=== PATIENT | male | born 1960 | race Two or more races ===

== ENCOUNTER 2021-01-18 06:10 | Inpatient (IN) | payer MEDICAID, OTHER ==
[~2021-01-18] VITALS: Ht 160 cm; Wt 77.9 kg
[2021-01-18 07:38] LABS: Basophils # (auto) 0 10 ^3/uL (0-0.2); Eosinophils # (auto) 0.2 10 ^3/uL (0-0.8); Lymphocytes # (auto) 1.4 10 ^3/uL (0.4-5.4); Monocytes # (auto) 0.8 10 ^3/uL (0-1.3)
[2021-01-18 07:57] LABS: Basophils % (auto) 0.4 % (0.0-2.0); Eosinophils % (auto) 2.7 % (0.0-7.0); Hematocrit 40.8 % (41.0-53.0); Hemoglobin 14.7 g/dL (13.5-17.5); Lymphocytes % (auto) 20.1 % (10.0-50.0); Mean Corpuscular Hemoglobin 39.4 pg (28.0-32.0); Mean Corpuscular Volume 109.5 fL (80.0-100.0); Monocytes % (auto) 11.5 % (0.0-12.0); Neutrophils # (auto) 4.5 10 ^3/uL (1.6-8.6); Neutrophils % (auto) 65.3 % (37.0-80.0); Nucleated Red Blood Cells % 0.2 %; Red Blood Cells 3.73 10^6/uL (4.5-5.90); Red Cell Distribution Width 15.6 % (11.8-14.3); White Blood Cell 6.8 10^3/uL (4.4-10.8)
[2021-01-18 08:04] LABS: Albumin 1.9 g/dL (3.4-5.0); Anion Gap 3 (5-15); BUN/Creatinine Ratio 14.5; Blood Urea Nitrogen 11 mg/dL (7-18); Calcium 7.4 mg/dL (8.5-10.1); Carbon Dioxide 22 mmol/L (21-32); Chloride 107 mmol/L (98-107); GFR African American 135 mL/min; GFR Non-African American 112 mL/min; Glucose 99 mg/dL (74-106); Lipase 275 U/L (73-393); Potassium 4.6 mmol/L (3.5-5.1); Sodium 132 mmol/L (136-145)
[2021-01-18 08:10] LABS: Alanine Aminotransferase 69 U/L (16-61); Alkaline Phosphatase 346 U/L (45-117); Aspartate Aminotransferase 137 U/L (15-37); Bilirubin, Total 9.5 mg/dL (0.2-1.0)
[2021-01-18 09:25] LABS: INR 1.49 (0.9-1.15); Partial Thromboplastin Time 38.4 sec (23.0-31.2)
[2021-01-18] MEDS ORDERED: cefTRIAXone 1GM/50ML D5W 50 ML IV ONE (10:00)
[2021-01-18] MEDS ORDERED: metroNIDAZOLE 500MG/100ML 100 ML IV ONE ×2 (10:00)
[2021-01-18] MEDS ORDERED: MULTIPLE VITAMIN TAB PO ONE (11:45)
[2021-01-18] MEDS ORDERED: NITROGLYCERIN 0.4 MG SL TAB SL PRN (11:45)
[2021-01-18] MEDS ORDERED: MORPHINE SULF INJ 2 MG/ML SYRINGE 1ML IV PRN ×2 (11:45)
[2021-01-18] MEDS ORDERED: ONDANSETRON HCL 4 MG/2 ML VIAL IV PRN (11:45)
[2021-01-18] MEDS ORDERED: HYDROcodone-ACET 5/325MG TAB PO PRN (11:45)
[2021-01-18] MEDS ORDERED: THIAMINE HCL 100 MG TAB PO ONE (11:45)
[2021-01-18] MEDS ORDERED: ACETAMINOPHEN 500 MG TAB PO PRN (11:45)
[2021-01-18] MEDS: chlordiazePOXIDE HCL 25 MG CAP PO SCH ×3 (12:11→23:28)
[2021-01-18 12:41] LABS: Urine Bacteria FEW /hpf (None Seen); Urine Blood Negative /uL (Negative); Urine Mucus FEW (None Seen); Urine Specific Gravity 1.011 (1.001-1.035); Urine WBC 2 /hpf (0 - 3)
[2021-01-18 13:20] LABS: Hepatitis A Ab IgM Negative; Hepatitis B Core IgM Negative; Hepatitis B Surface Antigen Negative (Negative)
[2021-01-18 17:40] VITALS: BP 143/87
[2021-01-18] MEDS: PROPRANOLOL HCL 20 MG TAB PO SCH (22:16)
[2021-01-19 05:00] VITALS: BP 143/72
[2021-01-19] MEDS: chlordiazePOXIDE HCL 25 MG CAP PO SCH ×2 (06:30→13:43)
[2021-01-19 06:46] LABS: Potassium 4.5 mmol/L (3.5-5.1)
[2021-01-19 07:00] LABS: Albumin 1.8 g/dL (3.4-5.0); BUN/Creatinine Ratio 17.9; Bilirubin, Total 9.9 mg/dL (0.2-1.0); Calcium 7.2 mg/dL (8.5-10.1); Total Protein 7.1 g/dL (6.4-8.2)
[2021-01-19 07:30] LABS: Basophils # (auto) 0 10 ^3/uL (0-0.2); Basophils % (auto) 0.8 % (0.0-2.0); Eosinophils # (auto) 0.2 10 ^3/uL (0-0.8); Hematocrit 39.9 % (41.0-53.0); Hemoglobin 14.3 g/dL (13.5-17.5); Lymphocytes # (auto) 1.1 10 ^3/uL (0.4-5.4); Mean Corpuscular Hemoglobin 38.7 pg (28.0-32.0); Mean Corpuscular Hgb Conc. 35.7 g/dL (32.0-36.0); Mean Corpuscular Volume 108.4 fL (80.0-100.0); Monocytes # (auto) 0.6 10 ^3/uL (0-1.3); Monocytes % (auto) 12.1 % (0.0-12.0); Neutrophils # (auto) 3.1 10 ^3/uL (1.6-8.6); Neutrophils % (auto) 62.1 % (37.0-80.0); Nucleated Red Blood Cells % 0.7 %; Red Blood Cells 3.68 10^6/uL (4.5-5.90); Red Cell Distribution Width 15.7 % (11.8-14.3)
[2021-01-19] MEDS ORDERED: SPIRONOLACTONE 25 MG TAB PO SCH (10:00)
[2021-01-19] MEDS ORDERED: THIAMINE HCL 100 MG TAB PO SCH (10:00)
[2021-01-19] MEDS ORDERED: MULTIPLE VITAMIN TAB PO SCH (10:00)
[2021-01-19] MEDS: PROPRANOLOL HCL 20 MG TAB PO SCH (10:38)
[2021-01-19 13:22] VITALS: BP 139/75
[2021-01-25 13:51] LABS: Hepatitis C Antibody Negative (Negative)
== END 2021-01-19 16:20 | disposition home or self-care (01) | DRG 280 ==
LOC: ER 06:10 → OVERFLOW 11:39 → WEST WING 15:14
PROVIDERS: ADMIT Nurse Practitioner Acute Care; ATTEND Internal Medicine
DX: K70.30 Alcoholic cirrhosis of liver without ascites (principal); D68.4 Acquired coagulation factor deficiency; D69.6 Thrombocytopenia, unspecified; K76.6 Portal hypertension; E88.09 Other disorders of plasma-protein metabolism, not elsewhere classified; K27.9 Peptic ulcer, site unspecified, unspecified as acute or chronic, without hemorrhage or perforation; E66.9 Obesity, unspecified; F10.20 Alcohol dependence, uncomplicated; I10 Essential (primary) hypertension; R16.1 Splenomegaly, not elsewhere classified; Z20.822 Contact with and (suspected) exposure to COVID-19; Z88.8 Allergy status to other drugs, medicaments and biological substances; Z68.30 Body mass index [BMI] 30.0-30.9, adult
CPT/HCPCS: 36415; 74176; 80053; 80074; 81001; 82140; 83690; 84484; 85025; 85049; 85610; 85730; 87426; 93005; 96365; 96368; G0378; J0696; J3490

== ENCOUNTER 2022-04-29 08:59 | Inpatient (IN) | payer MEDICAID ==
[~2022-04-29] VITALS: Ht 160 cm; Wt 86.1 kg
[2022-04-29 09:40] LABS: Urine WBC None Seen /hpf (0 - 3)
[2022-04-29 09:45] LABS: Basophils # (auto) 0 10 ^3/uL (0-0.2); Basophils % (auto) 0.4 % (0.0-2.0); Eosinophils # (auto) 0.1 10 ^3/uL (0-0.8); Eosinophils % (auto) 2.6 % (0.0-7.0); Hematocrit 39.4 % (41.0-53.0); Hemoglobin 13.6 g/dL (13.5-17.5); Lymphocytes # (auto) 1.9 10 ^3/uL (0.4-5.4); Lymphocytes % (auto) 33.5 % (10.0-50.0); Mean Corpuscular Hgb Conc. 34.5 g/dL (32.0-36.0); Mean Corpuscular Volume 104.4 fL (80.0-100.0); Monocytes # (auto) 0.5 10 ^3/uL (0-1.3); Neutrophils # (auto) 3.2 10 ^3/uL (1.6-8.6); Neutrophils % (auto) 55.5 % (37.0-80.0); Nucleated Red Blood Cells % 0.2 %; Red Blood Cells 3.77 10^6/uL (4.5-5.90); White Blood Cell 5.7 10^3/uL (4.4-10.8)
[2022-04-29 09:49] LABS: Urine Bacteria NONE SEEN /hpf (None Seen); Urine Blood Negative /uL (Negative); Urine Specific Gravity 1.002 (1.001-1.035)
[2022-04-29] MEDS ORDERED: PANTOPRAZOLE 40 MG/10 ML VIAL INJ IV ONE (10:00)
[2022-04-29] MEDS ORDERED: PANTOPRAZOLE 40mg/50ML NS AE 50 ML IV ONE (10:00)
[2022-04-29 10:03] LABS: Albumin 2.5 g/dL (3.4-5.0); Calcium 7.7 mg/dL (8.5-10.1); Potassium 4.8 mmol/L (3.5-5.1)
[2022-04-29 10:07] LABS: BUN/Creatinine Ratio 10.1; Bilirubin, Total 3.4 mg/dL (0.2-1.0); Total Protein 7.4 g/dL (6.4-8.2)
[2022-04-29 11:13] LABS: INR 1.4 (0.9-1.15); Partial Thromboplastin Time 42.8 sec (24.6-33.4)
[2022-04-29] MEDS ORDERED: DOCUSATE SOD 100 MG CAP PO PRN (16:30)
[2022-04-29] MEDS ORDERED: NITROGLYCERIN 0.4 MG SL TAB SL PRN (16:30)
[2022-04-29] MEDS ORDERED: ONDANSETRON HCL 4 MG/2 ML VIAL IV PRN (16:30)
[2022-04-29] MEDS ORDERED: HYDROcodone-ACET 5/325MG TAB PO PRN (16:30)
[2022-04-29] MEDS ORDERED: MORPHINE SULFATE INJ 2 MG/ml SYRG IV PRN (16:30)
[2022-04-29 17:24] LABS: Basophils # (auto) 0 10 ^3/uL (0-0.2); Basophils % (auto) 0.3 % (0.0-2.0); Eosinophils # (auto) 0.1 10 ^3/uL (0-0.8); Hematocrit 38.9 % (41.0-53.0); Hemoglobin 13.4 g/dL (13.5-17.5); Monocytes # (auto) 0.4 10 ^3/uL (0-1.3); Red Cell Distribution Width 14.1 % (11.8-14.3)
[2022-04-29 17:26] LABS: Lymphocytes # (auto) 1.7 10 ^3/uL (0.4-5.4); Mean Corpuscular Hemoglobin 36.5 pg (28.0-32.0); Mean Corpuscular Hgb Conc. 34.4 g/dL (32.0-36.0); Monocytes % (auto) 8.7 % (0.0-12.0); Neutrophils # (auto) 2.7 10 ^3/uL (1.6-8.6); Nucleated Red Blood Cells % 0.3 %; Red Blood Cells 3.67 10^6/uL (4.5-5.90); White Blood Cell 4.9 10^3/uL (4.4-10.8)
[2022-04-29 17:38] LABS: BUN/Creatinine Ratio 9.6; Calcium 7.6 mg/dL (8.5-10.1); Potassium 4.2 mmol/L (3.5-5.1)
[2022-04-29] MEDS ORDERED: SPIR25TA8 PO (19:56)
[2022-04-29] MEDS ORDERED: FOLI1TAB6 PO (19:56)
[2022-04-29] MEDS ORDERED: phytonadione 10 MG in SODIUM CHL 0.9% 50 ML IV ONE (21:30)
[2022-04-29 22:05] VITALS: BP 129/76
[2022-04-29] MEDS: FOLIC ACID 1 MG TAB PO SCH (22:31)
[2022-04-29] MEDS: METOPROLOL TARTRATE 25 MG TAB PO SCH (22:31)
[2022-04-29] MEDS: THIAMINE HCL 100 MG TAB PO SCH (22:31)
[2022-04-30 04:55] VITALS: BP 111/42
[2022-04-30 06:46] LABS: Albumin 2.1 g/dL (3.4-5.0); Calcium 7.7 mg/dL (8.5-10.1); Potassium 4.2 mmol/L (3.5-5.1)
[2022-04-30 06:51] LABS: BUN/Creatinine Ratio 12.9; Bilirubin, Total 4.4 mg/dL (0.2-1.0); Total Protein 6.2 g/dL (6.4-8.2)
[2022-04-30 08:05] LABS: Basophils # (auto) 0 10 ^3/uL (0-0.2); Hemoglobin 11.9 g/dL (13.5-17.5); Lymphocytes # (auto) 1.5 10 ^3/uL (0.4-5.4); Mean Corpuscular Hgb Conc. 34.2 g/dL (32.0-36.0); Monocytes # (auto) 0.4 10 ^3/uL (0-1.3); White Blood Cell 3.7 10^3/uL (4.4-10.8)
[2022-04-30 08:11] LABS: Basophils % (auto) 0.3 % (0.0-2.0); Eosinophils # (auto) 0.1 10 ^3/uL (0-0.8); Eosinophils % (auto) 3.9 % (0.0-7.0); Hematocrit 34.8 % (41.0-53.0); Lymphocytes % (auto) 41.4 % (10.0-50.0); Mean Corpuscular Hemoglobin 35.7 pg (28.0-32.0); Mean Corpuscular Volume 104.4 fL (80.0-100.0); Monocytes % (auto) 9.7 % (0.0-12.0); Neutrophils # (auto) 1.6 10 ^3/uL (1.6-8.6); Neutrophils % (auto) 44.7 % (37.0-80.0); Nucleated Red Blood Cells % 1.2 %; Red Blood Cells 3.33 10^6/uL (4.5-5.90); Red Cell Distribution Width 14.1 % (11.8-14.3)
[2022-04-30] MEDS: FOLIC ACID 1 MG TAB PO SCH (09:08)
[2022-04-30] MEDS: THIAMINE HCL 100 MG TAB PO SCH (09:08)
[2022-04-30 09:40] VITALS: BP 127/41
[2022-04-30] MEDS ORDERED: PANTOPRAZOLE 40 MG TAB PO SCH (10:00)
[2022-04-30] MEDS: METOPROLOL TARTRATE 25 MG TAB PO SCH (10:55)
[2022-04-30] MEDS ORDERED: THIA100T10 PO (15:58)
[2022-04-30] MEDS ORDERED: PANT40T PO (15:58)
[2022-04-30 16:52] VITALS: BP 130/47
[2022-04-30 18:11] VITALS: BP 130/65
== END 2022-04-30 19:15 | disposition home or self-care (01) | DRG 253 ==
LOC: ER 08:59 → OVERFLOW 16:29 → WEST WING 18:26
PROVIDERS: ADMIT Internal Medicine; ATTEND Internal Medicine
DX: K92.2 Gastrointestinal hemorrhage, unspecified (principal); D69.6 Thrombocytopenia, unspecified; K70.30 Alcoholic cirrhosis of liver without ascites; I10 Essential (primary) hypertension; D53.9 Nutritional anemia, unspecified; F10.21 Alcohol dependence, in remission; Z88.8 Allergy status to other drugs, medicaments and biological substances; Z20.822 Contact with and (suspected) exposure to COVID-19
CPT/HCPCS: 36415; 71045; 74176; 80048; 80053; 81001; 83735; 84484; 85025; 85384; 85610; 85730; 86850; 86900; 86901; 93005; 96365; 96375; C9113; G0378; J3430

== ENCOUNTER 2022-05-17 07:13 | Inpatient (IN) | payer MEDICAID ==
[~2022-05-17] VITALS: Ht 160 cm; Wt 92.0 kg
[~2022-05-17 07:13] MED LIST: FOLI1TAB6 PO; PANT40T PO; SPIR25TA8 PO; THIA100T10 PO
[2022-05-17 08:23] LABS: Albumin 2.4 g/dL (3.4-5.0); Anion Gap 4 (5-15); Blood Alcohol < 3.0 mg/dL (0-5); Blood Urea Nitrogen 10 mg/dL (7-18); Carbon Dioxide 23 mmol/L (21-32); Chloride 112 mmol/L (98-107); Glucose 180 mg/dL (74-106); Magnesium 1.8 mg/dL (1.6-2.6); Sodium 139 mmol/L (136-145)
[2022-05-17 08:28] LABS: Alanine Aminotransferase 58 U/L (16-61); Alkaline Phosphatase 318 U/L (45-117); Aspartate Aminotransferase 67 U/L (15-37); Bilirubin, Total 3.2 mg/dL (0.2-1.0); GFR African American 123 mL/min; GFR Non-African American 102 mL/min; INR 1.4 (0.9-1.15); Partial Thromboplastin Time 40.3 sec (24.6-33.4); Total Protein 7.4 g/dL (6.4-8.2)
[2022-05-17 08:56] LABS: BUN/Creatinine Ratio 12.2
[2022-05-17 08:57] LABS: Basophils # (auto) 0 10 ^3/uL (0-0.2); Eosinophils # (auto) 0.1 10 ^3/uL (0-0.8); Lymphocytes # (auto) 1.5 10 ^3/uL (0.4-5.4)
[2022-05-17 09:00] LABS: Basophils % (auto) 0.4 % (0.0-2.0); Eosinophils % (auto) 2.4 % (0.0-7.0); Hematocrit 40.1 % (41.0-53.0); Hemoglobin 14.1 g/dL (13.5-17.5); Lymphocytes % (auto) 35.8 % (10.0-50.0); Mean Corpuscular Hemoglobin 36.1 pg (28.0-32.0); Mean Corpuscular Hgb Conc. 35.1 g/dL (32.0-36.0); Monocytes # (auto) 0.3 10 ^3/uL (0-1.3); Monocytes % (auto) 7.9 % (0.0-12.0); Neutrophils # (auto) 2.2 10 ^3/uL (1.6-8.6); Neutrophils % (auto) 53.5 % (37.0-80.0); Nucleated Red Blood Cells % 0.6 %; Red Blood Cells 3.89 10^6/uL (4.5-5.90); Red Cell Distribution Width 14.2 % (11.8-14.3); White Blood Cell 4.2 10^3/uL (4.4-10.8)
[2022-05-17] MEDS ORDERED: LACTULOSE 20Gm/30ML SOLN PO ONE (13:15)
[2022-05-17] MEDS ORDERED: NITROGLYCERIN 0.4 MG SL TAB SL PRN (13:30)
[2022-05-17] MEDS ORDERED: DOCUSATE SOD 100 MG CAP PO PRN (13:30)
[2022-05-17] MEDS ORDERED: ONDANSETRON HCL 4 MG/2 ML VIAL IV PRN ×2 (13:30)
[2022-05-17] MEDS ORDERED: MORPHINE SULFATE INJ 2 MG/ml SYRG IV PRN (13:30)
[2022-05-17] MEDS: LACTULOSE 20Gm/30ML SOLN PO SCH ×2 (13:30→22:39)
[2022-05-17] MEDS ORDERED: hydrALAZINE HCL 20 MG/ML VL IV PRN (13:30)
[2022-05-17] MEDS: PANTOPRAZOLE 40 MG/10 ML VIAL INJ IV SCH (14:36)
[2022-05-17] MEDS: ALPRAZolam 0.25 MG TAB PO PRN (18:54)
[2022-05-18 00:01] VITALS: BP 147/68
[2022-05-18 05:00] VITALS: BP 123/54
[2022-05-18 06:46] LABS: Basophils # (auto) 0 10 ^3/uL (0-0.2); Basophils % (auto) 0.3 % (0.0-2.0); Eosinophils # (auto) 0.1 10 ^3/uL (0-0.8); Mean Corpuscular Hemoglobin 38.3 pg (28.0-32.0); Monocytes # (auto) 0.5 10 ^3/uL (0-1.3); Red Cell Distribution Width 13.9 % (11.8-14.3); White Blood Cell 4.4 10^3/uL (4.4-10.8)
[2022-05-18 06:48] LABS: Eosinophils % (auto) 2.2 % (0.0-7.0); Hematocrit 34.7 % (41.0-53.0); Hemoglobin 12.5 g/dL (13.5-17.5); Lymphocytes # (auto) 1.4 10 ^3/uL (0.4-5.4); Lymphocytes % (auto) 30.9 % (10.0-50.0); Mean Corpuscular Hgb Conc. 36.2 g/dL (32.0-36.0); Mean Corpuscular Volume 105.9 fL (80.0-100.0); Monocytes % (auto) 11.2 % (0.0-12.0); Neutrophils # (auto) 2.5 10 ^3/uL (1.6-8.6); Neutrophils % (auto) 55.4 % (37.0-80.0); Nucleated Red Blood Cells % 0.2 %; Red Blood Cells 3.27 10^6/uL (4.5-5.90)
[2022-05-18 07:02] LABS: Potassium 3.9 mmol/L (3.5-5.1)
[2022-05-18 07:08] LABS: Albumin 2.1 g/dL (3.4-5.0); BUN/Creatinine Ratio 18.3; Bilirubin, Total 2.6 mg/dL (0.2-1.0); Calcium 7.7 mg/dL (8.5-10.1); Total Protein 6.3 g/dL (6.4-8.2)
[2022-05-18 09:00] VITALS: BP 135/46
[2022-05-18] MEDS: PANTOPRAZOLE 40 MG/10 ML VIAL INJ IV SCH (09:27)
[2022-05-18] MEDS: LACTULOSE 20Gm/30ML SOLN PO SCH ×2 (09:27→22:43)
[2022-05-18] MEDS: ALPRAZolam 0.25 MG TAB PO PRN (09:32)
[2022-05-18 13:00] VITALS: BP 145/67
[2022-05-18 21:30] VITALS: BP 145/62
[2022-05-19 05:00] VITALS: BP 123/65
[2022-05-19 09:00] VITALS: BP 139/72
[2022-05-19] MEDS: PANTOPRAZOLE 40 MG/10 ML VIAL INJ IV SCH (10:00)
[2022-05-19] MEDS: LACTULOSE 20Gm/30ML SOLN PO SCH ×2 (10:00→21:27)
[2022-05-19 17:01] VITALS: BP 152/86
[2022-05-19 21:21] VITALS: BP 143/70
[2022-05-19] MEDS ORDERED: LACTULOSE 20Gm/30ML SOLN PO SCH (22:00)
[2022-05-20 04:54] VITALS: BP 125/79
[2022-05-20 05:24] LABS: Albumin 2.2 g/dL (3.4-5.0); Calcium 7.8 mg/dL (8.5-10.1); Potassium 4.5 mmol/L (3.5-5.1)
[2022-05-20 05:29] LABS: BUN/Creatinine Ratio 13.5; Bilirubin, Total 3.6 mg/dL (0.2-1.0); Total Protein 6.4 g/dL (6.4-8.2)
[2022-05-20] MEDS: LACTULOSE 20Gm/30ML SOLN PO SCH ×4 (06:12→22:06)
[2022-05-20] MEDS ORDERED: METO25TA5 PO (08:25)
[2022-05-20 08:58] VITALS: BP 148/75
[2022-05-20] MEDS: PANTOPRAZOLE 40 MG/10 ML VIAL INJ IV SCH (09:38)
[2022-05-20] MEDS: FOLIC ACID 1 MG TAB PO SCH (13:12)
[2022-05-20] MEDS: THIAMINE HCL 100 MG TAB PO SCH (13:12)
[2022-05-20 13:13] VITALS: BP 145/62
[2022-05-20] MEDS ORDERED: RIFA550T PO (15:15)
[2022-05-20 16:55] VITALS: BP 156/48
[2022-05-20 22:00] VITALS: BP 144/57
[2022-05-20] MEDS: rifAXIMin 550 MG TAB PO SCH (22:07)
[2022-05-20] MEDS: METOPROLOL TARTRATE 25 MG TAB PO SCH (22:07)
[2022-05-21 05:22] VITALS: BP 131/68
[2022-05-21] MEDS: LACTULOSE 20Gm/30ML SOLN PO SCH ×4 (06:04→23:34)
[2022-05-21 08:41] VITALS: BP 144/69
[2022-05-21] MEDS: THIAMINE HCL 100 MG TAB PO SCH (10:00)
[2022-05-21] MEDS: rifAXIMin 550 MG TAB PO SCH ×2 (10:28→23:34)
[2022-05-21] MEDS: FOLIC ACID 1 MG TAB PO SCH (10:28)
[2022-05-21] MEDS: METOPROLOL TARTRATE 25 MG TAB PO SCH ×2 (10:29→23:34)
[2022-05-21] MEDS: PANTOPRAZOLE 40 MG/10 ML VIAL INJ IV SCH (10:32)
[2022-05-21 13:00] VITALS: BP 133/45
[2022-05-21 13:57] LABS: Albumin 2.4 g/dL (3.4-5.0); Calcium 7.8 mg/dL (8.5-10.1); Potassium 4.5 mmol/L (3.5-5.1)
[2022-05-21 14:00] LABS: BUN/Creatinine Ratio 11.6; Total Protein 7.7 g/dL (6.4-8.2)
[2022-05-21 21:53] VITALS: BP 145/61
[2022-05-22 05:00] VITALS: BP 127/61
[2022-05-22] MEDS: LACTULOSE 20Gm/30ML SOLN PO SCH ×3 (06:45→21:32)
[2022-05-22 09:00] VITALS: BP 137/42
[2022-05-22] MEDS: THIAMINE HCL 100 MG TAB PO SCH (10:00)
[2022-05-22] MEDS: FOLIC ACID 1 MG TAB PO SCH (11:16)
[2022-05-22] MEDS: PANTOPRAZOLE 40 MG/10 ML VIAL INJ IV SCH (11:16)
[2022-05-22] MEDS: rifAXIMin 550 MG TAB PO SCH ×2 (11:17→21:31)
[2022-05-22] MEDS: METOPROLOL TARTRATE 25 MG TAB PO SCH ×2 (11:18→21:31)
[2022-05-22 13:00] VITALS: BP 130/54
[2022-05-22] MEDS ORDERED: LACT10SO3 PO (16:09)
[2022-05-22] MEDS ORDERED: RIFA550T PO (16:09)
[2022-05-22 17:00] VITALS: BP 107/59
[2022-05-22 21:43] VITALS: BP 119/57
[2022-05-23 05:00] VITALS: BP 125/62
[2022-05-23] MEDS: LACTULOSE 20Gm/30ML SOLN PO SCH ×2 (05:36→13:49)
[2022-05-23 08:00] VITALS: BP 129/88
[2022-05-23] MEDS: FOLIC ACID 1 MG TAB PO SCH (09:59)
[2022-05-23] MEDS: PANTOPRAZOLE 40 MG/10 ML VIAL INJ IV SCH (09:59)
[2022-05-23] MEDS: METOPROLOL TARTRATE 25 MG TAB PO SCH (10:00)
[2022-05-23] MEDS: rifAXIMin 550 MG TAB PO SCH (10:00)
[2022-05-23] MEDS: THIAMINE HCL 100 MG TAB PO SCH (10:00)
[2022-05-23 12:10] VITALS: BP 148/46
[2022-05-23 14:26] LABS: Hepatitis B Surface Antibody Negative (Negative)
[2022-05-23 16:00] VITALS: BP 127/58
[2022-05-23 17:04] VITALS: BP 129/88
== END 2022-05-23 18:00 | disposition home or self-care (01) ==
LOC: ER 07:13 → OVERFLOW 13:23 → CENTRAL 22:58
PROVIDERS: ADMIT Nurse Practitioner; ATTEND Nurse Practitioner
DX: K76.82 Hepatic encephalopathy (principal); D69.6 Thrombocytopenia, unspecified; K74.60 Unspecified cirrhosis of liver; F10.21 Alcohol dependence, in remission; I10 Essential (primary) hypertension; Z20.822 Contact with and (suspected) exposure to COVID-19; E66.9 Obesity, unspecified; Z68.35 Body mass index [BMI] 35.0-35.9, adult; Z88.8 Allergy status to other drugs, medicaments and biological substances
CPT/HCPCS: 36415; 70450; 74176; 80053; 80320; 82140; 82962; 83735; 85025; 85610; 85730; 86703; 86706; 86803; 87340; 87426; 93005; 96374; C9113; G0378

== ENCOUNTER 2023-03-17 09:25 | Emergency (ER) | payer MEDICAID ==
[~2023-03-17] VITALS: Ht 160 cm; Wt 76.9 kg
[~2023-03-17 09:25] MED LIST changes: +FOLI-119 PO; -FOLI1TAB6 PO; +LACT10SO3 PO; +METO25TA5 PO; +RIFA550T PO
[2023-03-17 10:28] VITALS: BP 143/66; PULSE 63; RESP 18; TEMP 98.1; O2SAT 97
[2023-03-17] MEDS ORDERED: CIPRSUS OT (10:28)
[2023-03-17] MEDS ORDERED: AUG875T PO (10:28)
[2023-03-17] MEDS ORDERED: ACET-1080 PO (10:28)
== END 2023-03-17 10:35 | disposition home or self-care (01) ==
LOC: ER 09:25
DX: H66.93 Otitis media, unspecified, bilateral (principal); E11.9 Type 2 diabetes mellitus without complications; I10 Essential (primary) hypertension; Z88.6 Allergy status to analgesic agent

== ENCOUNTER 2023-03-21 14:02 | Emergency (ER) | payer MEDICAID ==
[~2023-03-21] VITALS: Ht 162.6 cm; Wt 79.3 kg
[~2023-03-21 14:02] MED LIST changes: +ACET-1080 PO; +AUG875T PO; +CIPRSUS OT
[2023-03-21 14:23] VITALS: BP 159/79; PULSE 77; RESP 18; O2SAT 95
[2023-03-21] MEDS ORDERED: HYDROcodone-ACET 5/325MG TAB PO ONE (18:30)
[2023-03-21] MEDS ORDERED: cefTRIAXone SOD 1,000 MG VL IM ONE (18:30)
[2023-03-21] MEDS ORDERED: HYDR-4902 PO (18:32)
== END 2023-03-21 19:09 | disposition home or self-care (01) ==
LOC: ER 14:02
DX: H66.93 Otitis media, unspecified, bilateral (principal); H70.93 Unspecified mastoiditis, bilateral; E11.9 Type 2 diabetes mellitus without complications; I10 Essential (primary) hypertension; Z88.6 Allergy status to analgesic agent
CPT/HCPCS: 70486; 96374; 99285; J0696